=== PATIENT | female | born 1990 | race Caucasian/White ===

== ENCOUNTER 2019-08-21 14:51 | Emergency (ER) | payer MEDICAID ==
[~2019-08-21] VITALS: Ht 167.6 cm; Wt 59.0 kg
[2019-08-21] MEDS ORDERED: KETOROLAC TROMETHAMINE 60 MG INJ IM ONE ×2 (15:00→15:11)
--- NOTE | 2019-08-21 16:20 | NUR ---
pt walks in steady gait to the bathroom
--- NOTE | 2019-08-21 17:50 | NUR ---
Patient discharged to home in stable conditon. Written and verbal after care instructions given. Patient verbalizes understanding of instructions.pt walks i nsteady gait. pt says feels better. deneis any pain or nausea or dizziness at this time.
[2019-08-21 18:06] VITALS: BP 121/61
--- NOTE | 2019-08-21 18:07 | NUR ---
pt caling taxi to come and rock picker the pt,
== END 2019-08-21 18:07 | disposition home or self-care (01) ==
LOC: ER 14:51
DX: S63.92XA Sprain of unspecified part of left wrist and hand, initial encounter (principal); M79.10 Myalgia, unspecified site; V49.9XXA Car occupant (driver) (passenger) injured in unspecified traffic accident, initial encounter; Y93.89 Activity, other specified; Y92.89 Other specified places as the place of occurrence of the external cause; Y99.8 Other external cause status
CPT/HCPCS: 70450; 72125; 73130; 96372; 99284; J1885; A4663